=== PATIENT | female | born 1995 | race Caucasian/White ===

== ENCOUNTER 2018-02-03 08:43 | Emergency (ER) | payer OTHER ==
[~2018-02-03] VITALS: Ht 152.4 cm; Wt 50.8 kg
[2018-02-03 09:02] VITALS: Ht 152.4 cm; Wt 50.8 kg
[2018-02-03 10:59] VITALS: BP 117/73
[2018-02-05 14:57] LABS: RAPID PLASMA REAGIN Non Reactive (Non Reactive)
== END 2018-02-03 10:59 | disposition home or self-care (01) ==
LOC: ED 08:43
PROVIDERS: Emergency Medicine
DX: R10.2 Pelvic and perineal pain (principal); F12.90 Cannabis use, unspecified, uncomplicated
CPT/HCPCS: 87491; 87591; J0696; J1885; Q0162

== ENCOUNTER 2018-11-24 11:19 | Emergency (ER) | payer MEDICAID ==
[~2018-11-24] VITALS: Ht 152.4 cm; Wt 54.0 kg
[2018-11-24 11:27] VITALS: Ht 152.4 cm; Wt 54.0 kg
[2018-11-24 12:05] LABS: BASOPHIL % 0.3 % (0-2); RED CELL DISTRIBUTION WIDTH 13.5 % (11.5-14.5)
[2018-11-24 12:08] LABS: PLATELET COUNT 413 x10^3mcL (130-400)
[2018-11-24 12:14] LABS: CALCIUM 9.5 mg/dL (8.5-10.1); CARBON DIOXIDE 26.5 mmol/L (21-32); CHLORIDE SERUM 104 mmol/L (98-107); CREATININE SERUM 0.7 mg/dL (0.6-1.0); GFR1 > 60 mL/min; GLUCOSE SERUM 111 mg/dL (74-106); SODIUM SERUM 143 mmol/L (136-145)
[2018-11-24 12:19] LABS: ALBUMIN 4.5 g/dL (3.4-5.0); ALKALINE PHOSPHATASE 70 U/L (46-116); ALT/SGPT 21 U/L (14-59); AMYLASE 77 U/L (25-115); AST/SGOT 16 U/L (15-37); BILIRUBIN TOTAL 0.32 mg/dL (0.20-1.00); LIPASE 89 IU/L (73-393)
[2018-11-24 12:26] LABS: TOTAL PROTEIN, SERUM 8.3 g/dL (6.4-8.2)
[2018-11-24 14:34] VITALS: BP 110/62
[2018-11-24 14:43] LABS: AMPHETAMINE QUAL UR NONE DETECTED (See below)
== END 2018-11-24 14:34 | disposition home or self-care (01) ==
LOC: ED 11:19
PROVIDERS: Specialist
DX: F10.10 Alcohol abuse, uncomplicated (principal)
CPT/HCPCS: G0480; J2405; J3490; J7030

== ENCOUNTER 2019-10-01 05:50 | Emergency (ER) | payer SELFPAY ==
[~2019-10-01] VITALS: Ht 152.4 cm; Wt 57.6 kg
[2019-10-01 05:57] VITALS: Ht 152.4 cm; Wt 57.6 kg
[2019-10-01 08:11] LABS: UA SPECIFIC GRAVITY 1.025 (1.005-1.035); microscopic required? YES; urine erythrocyte TRACE (NEGATIVE)
[2019-10-01 10:48] VITALS: BP 129/74
[2019-10-02 06:10] LABS: RAPID PLASMA REAGIN Non Reactive (Non Reactive)
== END 2019-10-01 10:48 | disposition home or self-care (01) ==
LOC: ED 05:50
PROVIDERS: Emergency Medicine
DX: N72 Inflammatory disease of cervix uteri (principal); N76.0 Acute vaginitis
CPT/HCPCS: 87491; 87591; J0696

== ENCOUNTER 2020-10-09 18:19 | Emergency (ER) | payer SELFPAY ==
[~2020-10-09] VITALS: Ht 165.1 cm; Wt 61.2 kg
[2020-10-09 18:21] VITALS: BP 97/58; Ht 165.1 cm; Wt 61.2 kg
[2020-10-09 19:58] LABS: BASOPHIL % 0.2 % (0.2-1.3); PLATELET COUNT 231 x10^3mcL (179-408); RED CELL DISTRIBUTION WIDTH 14.1 % (12.3-17.7)
[2020-10-09 20:53] LABS: CALCIUM 8.5 mg/dL (8.5-10.1); CHLORIDE SERUM 104 mmol/L (98-107); CREATININE SERUM 0.7 mg/dL (0.6-1.0); GFR1 > 60 mL/min; GLUCOSE SERUM 151 mg/dL (74-106); POTASSIUM SERUM 3.7 mmol/L (3.5-5.1); SODIUM SERUM 140 mmol/L (136-145)
[2020-10-09 20:58] LABS: ALKALINE PHOSPHATASE 56 U/L (46-116); ALT/SGPT 25 U/L (14-59); AST/SGOT 17 U/L (15-37); BILIRUBIN TOTAL 0.18 mg/dL (0.20-1.00); LIPASE 100 IU/L (73-393); TOTAL PROTEIN, SERUM 7.3 g/dL (6.4-8.2)
== END 2020-10-09 21:50 | disposition home or self-care (01) ==
LOC: ED 18:19
PROVIDERS: Emergency Medicine
DX: U07.1 COVID-19 (principal); K52.9 Noninfective gastroenteritis and colitis, unspecified
CPT/HCPCS: Q0162